=== PATIENT | female | born 1975 | race Caucasian/White ===

== ENCOUNTER 2023-03-22 03:33 | Day surgery (SDC) | payer OTHER, SELFPAY ==
[2023-03-19 09:11] VITALS: BMI 31.4
--- NOTE | 2023-03-19 09:17 | PC.NURSE ---
Report to the Outpatient Waiting Room, entrance under the green pavilion located off [facility], at time 0615 on date 03/22/23. Planned Procedure Time: 0815. Time changes happen often and if your time is changed the preop area will call you the afternoon before. - You and your visitor will be asked to self-screen and do not enter if you have any COVID symptoms. - A mask is optional within the hospital at this time. Patients may have clear liquids (water, carbonated beverages, clear teas, apple juice) until 3 hours prior to surgery with a maximum of 20 ounces. - No food from midnight until time of surgery Take the following medications with a SIP of water the morning of surgery: NONE DO NOT STOP ANY OF YOUR OTHER PRESCRIPTION MEDICATIONS PRIOR TO SURGERY ?EXCEPT THE FOLLOWING Medications to discontinue per physician: N/A Date to take last dose: N/A Please no make-up, nail tajik, hairspray, perfume, deodorant, or body powder the day of surgery. No jewelry (including any body piercings) or valuables the day of surgery, leave them at home. Please take a shower or bath the night before, or the morning of, surgery with an antibacterial soap. Wear comfortable, loose fitting clothing. - Jewelry must be removed prior to entering the operating room. Rings and piercings that are not removed may be cut off. - The hospital will not accept responsibility for valuables. - Please leave all valuables, including medications, at home the day of surgery. If you are going home after surgery, a licensed jeep driver must drive you home. - NO public transportation without another adult if you receive anesthesia. - We recommend that an adult stay with you for 24 hours following discharge. - We also recommend that you do not drive, make important decision, drink alcoholic beverages, or take any drugs that were not prescribed by your health care provider for at least 24 hours after your discharge time. Follow any additional instructions given to you from your surgeon. If you or anyone in your household have experienced Covid symptoms in the past week, please notify your surgeon or the nurse liaison at the phone number below for possible testing. Telephone instructions given to PT - ALEX HERRON and asked if any additional questions and then verbalized understanding. Patient advised to call surgeon office or pre surgery nurse liaison [phone] if any additional questions.
--- NOTE | 2023-03-21 12:56 | WPDANESEPPF ---
Anes - Initial Pre Proc Eval Procedure: Operation Date: 03/22/23 08:15 Proposed Procedures p Urethral Sling - Dominic Castro MD Date/Time: 03/21/23 12:56 Surgeon: Dominic Castro MD Pre Op Diagnosis: stress incontinence Patient Data Age: 47 Gender: F Height: 1.68 m Weight: 88.45 kg Allergies Allergy/AdvReac Type Severity Reaction Status Date / Time No Known Allergies Allergy Verified 03/22/23 06:49 Home Medications Medication Instructions Recorded Confirmed Type oxybutynin chloride 10 mg 10 mg PO DAILY 03/19/23 03/19/23 History tablet,extended release 24 hr Patient hx anesthesia problems: none Family hx anesthesia problems: none Results Review: All pre-operative results and documents have been reviewed as part of the pre-operative evaluation. [facility] Past Medical History Medical History Anxiety Depression Obesity Osteoarthritis Social History Social History Smoking status: Former smoker Tobacco type: cigarettes Additional smoking assessment comments: FOR A SHORT AMOUNT OF TIME 25 YEARS AGO Alcohol intake: former Alcohol use details: NONE SINCE 2002 Substance use: never Substance use type: does not use Living arrangements: with family Spiritual care concerns: No Anes - Eval Final PreProcedure Day of Procedure 03/21/23 12:56 Heart: regular rate and rhythm Lungs: clear to auscultation and normal air movement Airway: Mallampati scale class II Neurological: alert and oriented Last oral intake: >/= 8 hours ASA classification: II Emergent: no Anesthetic plan: proceed Anesthesia type and monitoring: general GIVS and LMA Results Review: All pre-operative results and documents have been reviewed as part of the pre-operative evaluation. Informed Consent: The patient's anesthetic plan and its attendant risks and benefits were discussed with the patient/family/POA. Questions were solicited and answers provided to the satisfaction of the patient/family/POA.
--- NOTE | 2023-03-21 13:04 | PM.IMHP ---
H&P: HPI History of Present Illness Date/Time: 03/21/23 13:04 Chief Complaint: stress incontinence Narrative: this woman has mixed incontinence. Stress predominant. She is on oxybutynin for overactive bladder. She presents for surgical treatment of stress incontinence Review of Systems Review of Systems: All systems reviewed & are unremarkable except as noted in HPI and below PMFSH Past Medical History Medical History Anxiety Depression Obesity Osteoarthritis Social History Social History Smoking status: Former smoker Tobacco type: cigarettes Additional smoking assessment comments: FOR A SHORT AMOUNT OF TIME 25 YEARS AGO Alcohol intake: former Alcohol use details: NONE SINCE 2002 Substance use: never Substance use type: does not use Living arrangements: with family Spiritual care concerns: No Meds Home Medications and Allergies Home Medications Medication Instructions Recorded Confirmed Type oxybutynin chloride 10 mg 10 mg PO DAILY 03/19/23 03/19/23 History tablet,extended release 24 hr Allergies Allergy/AdvReac Type Severity Reaction Status Date / Time No Known Allergies Allergy Verified 03/19/23 09:10 Exam Narrative: no acute distress normal breathing alert oriented x3 urethral hypermobility Assessment and Plan Assessment and plan (1) ALANNAH (stress urinary incontinence, female): Code(s): N39.3 - Stress incontinence (female) (male) Status: Acute Assessment and Plan: plan for urethral sling. Understands risks of bleeding, infection, lack of efficacy, recurrent or persistent stress incontinence, obstructive voiding requiring secondary procedure, hip and leg pain, dyspareunia, mesh related complications including exposure and extrusion. She also understands it will not help her overactive bladder symptoms. She agrees to proceed
[2023-03-22 06:57] VITALS: BP 131/93; PULSE 76; RESP 16; TEMP 36.6; O2SAT 99
--- NOTE | 2023-03-22 07:11 | WPDHPUPDATE1 ---
History and Physical Update Update Date/Time: 03/22/23 07:11 History and Physical has been reviewed, including an updated exam of the patient. There are NO changes in the patient's condition. Risks, benefits, and alternatives have been discussed and questions answered. Patient agrees to proceed with procedure.
[2023-03-22] MEDS: LACTATED RINGERS 1,000 ML 30 ML IV CONT (07:37)
[2023-03-22] MEDS: ceFAZolin 2 GM/D5W 50 ML 2 GM/50 ML BAG IVPB (08:21)
[2023-03-22 08:54] VITALS: BP 119/80; PULSE 79; RESP 16; O2SAT 99
--- NOTE | 2023-03-22 08:54 | P.OP_ITS ---
Procedure Note - Detailed Date of Procedure 03/22/23 Pre-op Diagnosis stress incontinence Post-op Diagnosis Same Procedure Performed mid urethral sling cystoscopy Surgeon Dominic Castro MD Anesthesia MAC and Local Indications This is a female with confirm stress urinary incontinence. She desires surgical correction. She understands the risks of bleeding, infection, injury to the urinary tract, vaginal mesh extrusion, urinary tract mesh erosion, obstructive voiding requiring a secondary procedure, hip and leg pain, dyspareunia, inability to improve overactive bladder symptoms. She agrees to proceed. Description of Procedure She was correctly identified. Informed consent obtained. She was brought the operating room. She was given appropriate anesthesia. She was given appropriate perioperative antibiotics. A time-out performed. I marked out the site of the inner thigh incisions. I anesthetized the skin and made those incisions. I anesthetized the anterior vaginal wall over the mid urethra. I made a 1 cm incision. I dissected out laterally taking great care not to injure the refilled vaginal wall. I passed the helical trocars. First on the left. Then on the right. I did this from the thigh incision towards the vaginal incis ion. The sling was connected to the trocars and brought out through the thigh incision. I tensioned the sling appropriately. I cut and the plastic sheaths. I then closed the incision with 2 0 Vicryl. On cystoscopy there is no tumors or surgical artifact. There was no surgical artifact in the urethra. I cut the excess sling material. Close incisions with glue. She was awakened and transferred to the PACU in stable condition. Implants Urethral sling Estimated Blood Loss 30 Drains No Packing No Pathology None sent Complications No immediate complications Condition Stable Disposition PACU
[2023-03-22 09:20] VITALS: BP 113/77; PULSE 79; RESP 16; O2SAT 94
[2023-03-22] MEDS: oxyCODONE HCL (*CRX) 5 MG TAB IR PO (09:43)
[2023-03-22 09:50] VITALS: BP 139/80; PULSE 66; RESP 16
== END 2023-03-22 10:12 | disposition home or self-care (01) ==
PROVIDERS: PCP Family Medicine; Visit Provider Urology
PROC: (CPT 57288; principal; 2023-03-22 08:15)
DX: N39.3 Stress incontinence (female) (male) (principal); E66.9 Obesity, unspecified; Z68.32 Body mass index [BMI] 32.0-32.9, adult; Z87.891 Personal history of nicotine dependence
CPT/HCPCS: 57288; A9270; C1771; J0690; J2250; J2704; J3010; J7030; J7120